=== PATIENT | female | born 1985 | race Caucasian/White ===

== ENCOUNTER 2020-06-22 10:58 | Emergency (ER) | payer OTHER, SELFPAY ==
--- NOTE | ~2020-06-22 | US_ITS ---
EXAMINATION: ULTRASOUND FIRST TRIMESTER CLINICAL INFORMATION: Positive hCG. Pelvic pain. History of tubal ligation. COMPARISON: February 21, 2016. TECHNIQUE: Transabdominal and transvaginal imaging of the pelvis was performed. Transvaginal imaging was performed for further evaluation of the endometrium and adnexa. FINDINGS: The uterus measures 7.5 x 4.8 x 4.8 cm. A regular homogeneous endometrium is identified measuring 18 mm. No intrauterine gestational sac is identified. There is no intrauterine fluid. The age by dates is 5 weeks 2 days. No heart rate is identified. Both ovaries are of normal size and echogenicity. The right measures 2.1 x 0.9 x 1.8 cm. The left measures 5.0 x 3.0 x 3.5 cm. This measurement includes an approximately 2.8 x 2.2 x 1.9 cm complicated cyst. There is no pelvic free fluid. US/US OB transvaginal IMPRESSION: No intrauterine gestational sac identified. Complicated left ovarian cyst.
--- NOTE | ~2020-06-22 | US_ITS ---
EXAMINATION: ULTRASOUND FIRST TRIMESTER CLINICAL INFORMATION: Positive hCG. Pelvic pain. History of tubal ligation. COMPARISON: February 21, 2016. TECHNIQUE: Transabdominal and transvaginal imaging of the pelvis was performed. Transvaginal imaging was performed for further evaluation of the endometrium and adnexa. FINDINGS: The uterus measures 7.5 x 4.8 x 4.8 cm. A regular homogeneous endometrium is identified measuring 18 mm. No intrauterine gestational sac is identified. There is no intrauterine fluid. The age by dates is 5 weeks 2 days. No heart rate is identified. Both ovaries are of normal size and echogenicity. The right measures 2.1 x 0.9 x 1.8 cm. The left measures 5.0 x 3.0 x 3.5 cm. This measurement includes an approximately 2.8 x 2.2 x 1.9 cm complicated cyst. There is no pelvic free fluid. US/US OB <= 14 weeks fetus IMPRESSION: No intrauterine gestational sac identified. Complicated left ovarian cyst.
[2020-06-22 13:07] VITALS: BP 114/71; PULSE 88; RESP 18; TEMP 37.4; O2SAT 100; BMI 48.8
--- NOTE | 2020-06-22 14:44 | ED_ITS ---
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[employer] [place] Mode of arrival: ambulatory Limitations: no limitations History of Present Illness HPI narrative: 34 yo female LMP 05/16/20 positive test at home despite tubal ligation status comes in with lower abdominal pain that is suprapubic in nature x 1 day no associated n/v/d no vaginal discharge, no bleeding, no dysuria MD elicited complaint: abdominal pain Pertinent past history: other () Onset (ago): day(s) (1) Pain Consistency: intermittent Location: suprapubic Severity: mild Quality: cramping Radiation: none Migration to: no migration Exacerbating factors: nothing Relieving factors: nothing Context: other (+ test at home) Associated symptoms: denies other symptoms Related Data Allergies Allergy/AdvReac Type Severity Reaction Status Date / Time No Known Allergies Allergy Unverified 01/20/20 19:10 [No Known Allergies*] Review of Systems Review of Systems Constitutional : No Weight loss, No Fever, No Chills ENT/Mouth : No sore throat, No Rhinorrhea Eyes: No Swelling, No Redness Cardiovascular : No Chest Pain, No SOB, NoEdema Respiratory : No Cough, No Sputum, No Wheezing Gastrointestinal : no Nausea, no Vomiting, no Diarrhea, positive abdominal Pain, No Hematochezia, No Melena Genitourinary : No Dysuria, No Urinary Frequency, No Hematuria, No Urgency , no vag bleeding Musculoskeletal : No joint pain, No Myalgias, No Joint Swelling Skin : No Skin Lesions, No rash Neuro : No Weakness, No Numbness, No Dizziness, No Headache Psych : No Anxiety/Panic, No Depression Heme/Lymph: No Bruising, No Lymphadenopathy Endocrine : No Polyuria, No Polydipsia All other systems reviewed and are negative. Physical Exam 2 Vital Signs: Vital Signs: Last Vital Signs Temp 99.4 F 06/22/20 13:07 Pulse 85 06/22/20 15:06 Resp 16 06/22/20 15:06 BP 115/74 06/22/20 15:06 Pulse Ox 100 06/22/20 15:06 Body Mass Index 48.8 Appearance: Alert. Oriented X3. No acute distress. Eyes: Pupils equal, round and reactive to light. ENT: Pharynx normal. Neck: Normal inspection. Neck supple. CVS: Normal heart rate and rhythm. Pulses normal. Respiratory: No respiratory distress. Breath sounds normal. Abdomen: Soft and very mild suprapubic ttp no rebound or guarding Skin: Skin warm and dry. Normal skin color. Normal skin turgor. Extremities: No lower extremity edema. No calf ttp Neuro: Oriented X 3. No motor deficit. No sensory deficit. Course Course Course Narrative: signed out to Dr. Arauz pending US and further workup MDM - Abdominal Pain MDM Narrative Medical decision making narrative: 34 yo female with suprapubic cramping hx of tubal ligation - pos preg at home LMP 05/16 - feels like shes going to get her period, she is - no associated symptoms no bleeding, will need UA, labs, quant, US Lab Data Result diagrams: 06/22/20 15:05 06/22/20 15:05 Labs: Lab Results 06/22/20 06/22/20 06/22/20 Range/Units 15:05 15:05 15:05 WBC 9.5 (4.8-10.8) X10*3/uL RBC 4.43 (4.20-5.50) X10*6/uL Hgb 11.7 L (12.0-16.0) g/dl Hct 36.6 L (37-47) % MCV 82.6 (80-98) fL MCH 26.4 L (27.0-33.0) pg MCHC 32.0 (31.0-35.0) g/dl RDW 14.7 (11.0-16.0) % Plt Count 325 (160-400) X10*3/uL MPV 10.2 (9.4-12.3) fL Immature Gran % (Auto) 0.3 (0.0-0.4) % Neut % (Auto) 68.5 (45-73) % Lymph % (Auto) 20.9 (20-40) % [place] % (Auto) 6.2 (2-11) % Eos % (Auto) 3.5 (0-4) % Baso % (Auto) 0.6 (0-2) % Lymph # (Auto) 2.0 (1.2-4.9) X10*3/uL [place] # (Auto) 0.6 (0.1-1.2) X10*3/uL Eos # (Auto) 0.3 (0.0-0.4) X10*3/uL Baso # (Auto) 0.1 (0.0-0.2) X10*3/uL Abs Immat Gran (auto) 0.03 (0.00-0.03) X10*3/uL Absolute Neuts (auto) 6.5 (2.0-8.3) X10*3/uL Absolute Nucleated RBC 0.000 (0.0-0.012) X10*3/uL Nucleated RBC % (auto) 0.0 (0.0-0.2) /100WBC Hold Blue Top SEE NOTE Sodium 134 L (135-145) mmol/L Potassium 3.5 (3.3-5.1) mmol/L Chloride 102 (96-108) mmol/L Carbon Dioxide 24 (22-29) mmol/L Anion Gap 12 (12-20) BUN 13 (9-16) mg/dL Creatinine 0.85 (0.5-1.4) mg/dL Estim Creat Clear Calc 117.6 Estimated GFR > 60 Random Glucose 122 H (60-115) mg/dL Calcium 9.2 (8.4-10.2) mg/dL Magnesium 2.0 (1.6-2.6) mg/dL Total Bilirubin 0.4 (0.0-1.0) mg/dL Direct Bilirubin < 0.2 (0.0-0.5) mg/dL AST 15 (5-31) U/L ALT 12 (0-31) U/L Alkaline Phosphatase 69 (39-117) U/L Total Protein 7.7 (6.5-8.0) g/dL Albumin 4.2 (3.5-5.0) g/dL Lipase 22 (8-78) U/L Beta HCG, Quant 201 mIU/mL Urine Color Urine Appearance Urine pH (5.0-8.0) Ur Specific [place] (1.005-1.025) Urine Protein (NEG-TRACE) MG/DL Urine Glucose (UA) (NEG) MG/DL Urine Ketones (NEG) MG/DL Urine Blood (NEG) Urine Nitrite (NEG) Ur Leukocyte Esterase (NEG) 06/22/20 Range/Units 15:12 WBC (4.8-10.8) X10*3/uL RBC (4.20-5.50) X10*6/uL Hgb (12.0-16.0) g/dl Hct (37-47) % MCV (80-98) fL MCH (27.0-33.0) pg MCHC (31.0-35.0) g/dl RDW (11.0-16.0) % Plt Count (160-400) X10*3/uL MPV (9.4-12.3) fL Immature Gran % (Auto) (0.0-0.4) % Neut % (Auto) (45-73) % Lymph % (Auto) (20-40) % [place] % (Auto) (2-11) % Eos % (Auto) (0-4) % Baso % (Auto) (0-2) % Lymph # (Auto) (1.2-4.9) X10*3/uL [place] # (Auto) (0.1-1.2) X10*3/uL Eos # (Auto) (0.0-0.4) X10*3/uL Baso # (Auto) (0.0-0.2) X10*3/uL Abs Immat Gran (auto) (0.00-0.03) X10*3/uL Absolute Neuts (auto) (2.0-8.3) X10*3/uL Absolute Nucleated RBC (0.0-0.012) X10*3/uL Nucleated RBC % (auto) (0.0-0.2) /100WBC Hold Blue Top Sodium (135-145) mmol/L Potassium (3.3-5.1) mmol/L Chloride (96-108) mmol/L Carbon Dioxide (22-29) mmol/L Anion Gap (12-20) BUN (9-16) mg/dL Creatinine (0.5-1.4) mg/dL Estim Creat Clear Calc Estimated GFR Random Glucose (60-115) mg/dL Calcium (8.4-10.2) mg/dL Magnesium (1.6-2.6) mg/dL Total Bilirubin (0.0-1.0) mg/dL Direct Bilirubin (0.0-0.5) mg/dL AST (5-31) U/L ALT (0-31) U/L Alkaline Phosphatase (39-117) U/L Total Protein (6.5-8.0) g/dL Albumin (3.5-5.0) g/dL Lipase (8-78) U/L Beta HCG, Quant mIU/mL Urine Color YELLOW Urine Appearance HAZY Urine pH 6.0 (5.0-8.0) Ur Specific [place] >= 1.030 H (1.005-1.025) Urine Protein NEG (NEG-TRACE) MG/DL Urine Glucose (UA) NEG (NEG) MG/DL Urine Ketones NEG (NEG) MG/DL Urine Blood NEG (NEG) Urine Nitrite NEG (NEG) Ur Leukocyte Esterase NEG (NEG) Discharge Plan Discharge Clinical Impression: Abdominal pain PMFSH Past Medical History Attestation statement: The following information was validated with the patient. Medical History Anemia Anxiety Depression Hypertension Social History Social History (Updated 06/22/20 @ 16:10 by Marilee Sanches DO) Smoking Status: Never smoker Advance Directives: No Advance Directives Information Provided: Yes
[2020-06-22 15:06] VITALS: BP 115/74; PULSE 85; RESP 16; O2SAT 100
[2020-06-22 15:13] LABS: Basophils Absolute Auto 0.1 X10*3/uL (0.0-0.2); Basophils Percent Auto 0.6 % (0-2); Eosinophils Absolute Auto 0.3 X10*3/uL (0.0-0.4); Eosinophils Percent Auto 3.5 % (0-4); Hematocrit 36.6 % (37-47); Hemoglobin 11.7 g/dl (12.0-16.0); Imm Gran Abs Auto 0.03 X10*3/uL (0.00-0.03); Imm Gran Pct Auto 0.3 % (0.0-0.4); Lymphocytes Percent Auto 20.9 % (20-40); MANUAL DIFF FLAG NO; Mean Corpuscular Hemoglobin 26.4 pg (27.0-33.0); Mean Corpuscular Volume 82.6 fL (80-98); Mean Platelet Volume 10.2 fL (9.4-12.3); Monocytes Absolute Auto 0.6 X10*3/uL (0.1-1.2); Monocytes Percent Auto 6.2 % (2-11); Neutrophils Absolute Auto 6.5 X10*3/uL (2.0-8.3); Neutrophils Percent Auto 68.5 % (45-73); Platelet Count 325 X10*3/uL (160-400); Red Blood Count 4.43 X10*6/uL (4.20-5.50); Red Cell Distribution Width 14.7 % (11.0-16.0); White Blood Count 9.5 X10*3/uL (4.8-10.8)
[2020-06-22 15:22] LABS: Glucose Urine UA NEG (NEG); Leukocyte Esterase Urine NEG (NEG); Nitrite Urine NEG (NEG); Specific Gravity - Urine >= 1.030 (1.005-1.025); Urine Blood NEG (NEG); Urine Ketones NEG (NEG); Urine Protein NEG (NEG-TRACE)
[2020-06-22 15:23] LABS: Appearance Urine HAZY; Color Urine YELLOW
[2020-06-22] MEDS: Acetaminophen 325 MG TABLET 650 MG PO (15:26)
[2020-06-22 15:45] LABS: Alanine Aminotransferase 12 U/L (0-31); Albumin Level 4.2 g/dL (3.5-5.0); Alkaline Phosphatase 69 U/L (39-117); Anion Gap 12 (12-20); Aspartate Amino Transferase 15 U/L (5-31); Bilirubin Direct < 0.2 mg/dL (0.0-0.5); Bilirubin Total 0.4 mg/dL (0.0-1.0); Blood Urea Nitrogen 13 mg/dL (9-16); Calcium 9.2 mg/dL (8.4-10.2); Carbon Dioxide 24 mmol/L (22-29); Chloride 102 mmol/L (96-108); Creatinine Clr Calc Pharmacy 117.6; Estimated Glomerular Filt Rate > 60; Glucose Random 122 mg/dL (60-115); Lipase 22 U/L (8-78); Potassium 3.5 mmol/L (3.3-5.1); Sodium 134 mmol/L (135-145); Total Protein 7.7 g/dL (6.5-8.0)
[2020-06-22 15:51] LABS: HCG Quantitative 201 mIU/mL
== END 2020-06-22 20:05 | disposition home or self-care (01) ==
PROVIDERS: Emergency Provider Emergency Medicine
DX: O34.81 Maternal care for other abnormalities of pelvic organs, first trimester (principal); N83.292 Other ovarian cyst, left side; O26.891 Other specified pregnancy related conditions, first trimester; R10.2 Pelvic and perineal pain; O10.911 Unspecified pre-existing hypertension complicating pregnancy, first trimester; O09.521 Supervision of elderly multigravida, first trimester; Z3A.01 Less than 8 weeks gestation of pregnancy
CPT/HCPCS: 36415; 76801; 76817; 80048; 80076; 81003; 83690; 83735; 84702; 85025; 99284

== ENCOUNTER 2020-06-27 11:58 | Outpatient (REF) | payer OTHER, SELFPAY ==
[2020-06-27 13:48] LABS: HCG Quantitative 262 mIU/mL
== END 2020-06-27 11:59 | disposition home or self-care (01) ==
LOC: HO.LAB 11:58
PROVIDERS: Visit Provider Obstetrics & Gynecology
DX: O26.899 Other specified pregnancy related conditions, unspecified trimester (principal); R10.9 Unspecified abdominal pain
CPT/HCPCS: 36415; 84702

== ENCOUNTER 2020-07-04 13:21 | Outpatient (REF) | payer OTHER, SELFPAY ==
--- NOTE | ~2020-07-04 | US_ITS ---
EXAMINATION: US OBSTETRICAL ULTRASOUND CLINICAL INFORMATION: Confirm viability. History of tubal ligation. COMPARISON: Ultrasound OB 06/22/2020. LMP: 05/16/2020. Gestational age by maternal dates is none. Estimated date of delivery by maternal dates is none. TECHNIQUE: Routine grayscale transabdominal imaging off pelvis was performed. FINDINGS: There is no intrauterine gestational sac, pole or heart rate seen. As no yolk seconds seen either. There is arcuate appearance of endometrial uterus. There are several nabothian cysts seen in the cervix. Minimal free fluid seen within this cervical canal. The uterine myometrium appears heterogenous with endometrial thickening of 1.49 cm cm MATERNAL ADNEXA: The right maternal ovary measures 4.0 x 1.3 x 1.9 cm. The right ovary appears unremarkable. The left maternal ovary measures 3.9 x 1.7 x 2.1 cm. Complex lesion with septations and calcifications measuring 1.8 x 1.3 x 1.4 cm in the left adnexa. There is no significant maternal adnexal mass. No maternal pelvic ascites. US/US OB <= 14 weeks fetus IMPRESSION: 1. No intrauterine gestational sac seen, pole seen. There is no adnexal mass or free fluid. There is a complex lesion with septations and calcifications in the left ovary measuring 1.8 cm maximum. There are small nabothian cysts in the cervix with endocervical canal fluid. Heterogeneous myometrium. Likely arcuate appearing uterine endometrium.
--- NOTE | ~2020-07-04 | US_ITS ---
EXAMINATION: US OBSTETRICAL ULTRASOUND CLINICAL INFORMATION: Confirm viability. History of tubal ligation. COMPARISON: Ultrasound OB 06/22/2020. LMP: 05/16/2020. Gestational age by maternal dates is none. Estimated date of delivery by maternal dates is none. TECHNIQUE: Routine grayscale transabdominal imaging off pelvis was performed. FINDINGS: There is no intrauterine gestational sac, pole or heart rate seen. As no yolk seconds seen either. There is arcuate appearance of endometrial uterus. There are several nabothian cysts seen in the cervix. Minimal free fluid seen within this cervical canal. The uterine myometrium appears heterogenous with endometrial thickening of 1.49 cm cm MATERNAL ADNEXA: The right maternal ovary measures 4.0 x 1.3 x 1.9 cm. The right ovary appears unremarkable. The left maternal ovary measures 3.9 x 1.7 x 2.1 cm. Complex lesion with septations and calcifications measuring 1.8 x 1.3 x 1.4 cm in the left adnexa. There is no significant maternal adnexal mass. No maternal pelvic ascites. US/US OB transvaginal IMPRESSION: 1. No intrauterine gestational sac seen, pole seen. There is no adnexal mass or free fluid. There is a complex lesion with septations and calcifications in the left ovary measuring 1.8 cm maximum. There are small nabothian cysts in the cervix with endocervical canal fluid. Heterogeneous myometrium. Likely arcuate appearing uterine endometrium.
[2020-07-04 15:07] LABS: HCG Quantitative 100 mIU/mL
== END 2020-07-04 13:22 | disposition home or self-care (01) ==
LOC: HO.US 13:21
PROVIDERS: PCP Internal Medicine; Visit Provider Obstetrics & Gynecology
DX: O36.80X0 Pregnancy with inconclusive fetal viability, not applicable or unspecified (principal)
CPT/HCPCS: 36415; 76801; 76817; 84702

== ENCOUNTER 2020-07-08 10:20 | Outpatient (REF) | payer OTHER, SELFPAY ==
[2020-07-08 11:30] LABS: HCG Quantitative 44 mIU/mL
== END 2020-07-08 10:21 | disposition home or self-care (01) ==
LOC: HO.LAB 10:20
PROVIDERS: PCP Internal Medicine; Visit Provider Obstetrics & Gynecology
DX: O09.511 Supervision of elderly primigravida, first trimester (principal); O36.80X0 Pregnancy with inconclusive fetal viability, not applicable or unspecified; Z3A.00 Weeks of gestation of pregnancy not specified
CPT/HCPCS: 36415; 84702